=== PATIENT | female | born 1980 | race Caucasian/White ===

== ENCOUNTER 2017-07-12 21:08 | Emergency (ER) | payer BC ==
[~2017-07-12] VITALS: Ht 154.9 cm; Wt 79.4 kg
[~2017-07-12 21:08] MED LIST: SERT25TA PO; SULF1TAB24 PO
--- NOTE | 2017-07-12 21:15 | ED.ADGEN ---
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 No recent travel, bad food. Pt. recently diagnosis of pneumonia. Many family members have had diarrhea. Pt. normally healthy. Review of Systems Review of Systems Constitutional: Hx fever or chills [] Eyes: Denies change in visual acuity, redness, or eye pain [] HENT: Denies nasal congestion or sore throat [] Respiratory: Denies cough or shortness of breath [] Cardiovascular: No additional information not addressed in HPI [] GI: Complaints of abdominal pain, nausea, and diarrhea [] : Denies dysuria or hematuria [] Musculoskeletal: Denies back pain or joint pain [] Integument: Denies rash or skin lesions [] Neurologic: Denies headache, focal weakness or sensory changes [] Endocrine: Denies polyuria or polydipsia [] All other systems were reviewed and found to be within normal limits, except as documented in this note. Family History Family History Non-contributory- other than multiple individuals with flu symptoms Current Medications Current Medications Current Medications Medications (Trade) Dose Ordered Sig/Evelio Start Time Stop Time Status Last Admin Dose Admin Ketorolac Tromethamine (Toradol) 30 mg 1X ONCE 07/12/17 21:45 07/12/17 22:01 DC 07/12/17 21:50 30 MG Lactated Ringer's 1,000 ml @ 1,000 mls/hr Q1H 07/12/17 21:45 07/12/17 23:09 DC Morphine Sulfate (Morphine 4mg Syringe) 4 mg 1X ONCE 07/12/17 21:45 07/12/17 21:47 DC Ondansetron HCl (Zofran) 8 mg 1X ONCE 07/12/17 21:45 07/12/17 21:47 DC 07/12/17 21:47 8 MG Sodium Chloride 1,000 ml @ 1,000 mls/hr 1X ONCE 07/12/17 22:15 07/12/17 23:09 DC 07/12/17 22:07 1,000 MLS/HR Allergies Allergies Allergies Coded Allergies Type Severity Reaction Last Updated Verified No Known Drug Allergies 05/01/15 No Physical Exam Physical Exam Constitutional: Well developed, well nourished, mild distress, non-toxic appearance. [] HENT: Normocephalic, atraumatic, bilateral external ears normal, oropharynx moist, no oral exudates, nose normal. [] Eyes: PERRLA, EOMI, conjunctiva normal, no discharge. [] Neck: Normal range of motion, no tenderness, supple, no stridor. [] Cardiovascular: Tachycardia Heart rate regular rhythm, no murmur [] Lungs & Thorax: Bilateral breath sounds clear to auscultation [] Abdomen: Bowel sounds hyperactive, soft, no tenderness, no masses, no pulsatile masses. [] Skin: Warm, dry, no erythema, no rash. [] Back: No tenderness, no CVA tenderness. [] Extremities: No tenderness, no cyanosis, no clubbing, ROM intact, no edema. [] Neurologic: Alert and oriented X 3, normal motor function, normal sensory function, no focal deficits noted. [] Psychologic: Affect anxious, judgement normal, mood normal. [] Current Patient Data Vital Signs Vital Signs Date Time Temp Pulse Resp B/P (MAP) Pulse Ox O2 Delivery O2 Flow Rate FiO2 07/12/17 23:08 108 16 103/48 (66) 98 Room Air 07/12/17 21:22 98.1 Lab Results Laboratory Tests Test 07/12/17 21:33 White Blood Count 7.9 x10^3/uL (4.0-11.0) Red Blood Count 4.58 x10^6/uL (3.50-5.40) Hemoglobin 13.2 g/dL (12.0-15.5) Hematocrit 39.2 % (36.0-47.0) Mean Corpuscular Volume 86 fL (79-100) Mean Corpuscular Hemoglobin 29 pg (25-35) Mean Corpuscular Hemoglobin Concent 34 g/dL (31-37) Red Cell Distribution Width 13.7 % (11.5-14.5) Platelet Count 173 x10^3/uL (140-400) Neutrophils (%) (Auto) 66 % (31-73) Lymphocytes (%) (Auto) 15 % (24-48) L Monocytes (%) (Auto) 13 % (0-9) H Eosinophils (%) (Auto) 5 % (0-3) H Basophils (%) (Auto) 0 % (0-3) Neutrophils # (Auto) 5.2 x10^3uL (1.8-7.7) Lymphocytes # (Auto) 1.2 x10^3/uL (1.0-4.8) Monocytes # (Auto) 1.0 x10^3/uL (0.0-1.1) Eosinophils # (Auto) 0.4 x10^3/uL (0.0-0.7) Basophils # (Auto) 0.0 x10^3/uL (0.0-0.2) Urine Collection Type Unknown Urine Color Straw Urine Clarity Clear Urine pH 7.0 Urine Specific [place] <=1.005 Urine Protein Neg (NEG-TRACE) Urine Glucose (UA) Neg mg/dL (NEG) Urine Ketones (Stick) Neg mg/dL (NEG) Urine Blood Small (NEG) Urine Nitrite Neg (NEG) Urine Bilirubin Neg (NEG) Urine Urobilinogen Dipstick 0.2 mg/dL (0.2 mg/dL) Urine Leukocyte Esterase Neg (NEG) Urine RBC Rare /HPF (0-2) Urine WBC Occ /HPF (0-4) Urine Squamous Epithelial Cells Mod /LPF Urine Bacteria 0 /HPF (0-FEW) Sodium Level 144 mmol/L (136-145) Potassium Level 3.4 mmol/L (3.5-5.1) L Chloride Level 105 mmol/L (98-107) Carbon Dioxide Level 27 mmol/L (21-32) Anion Gap 12 (6-14) Blood Urea Nitrogen 5 mg/dL (7-20) L Creatinine 0.9 mg/dL (0.6-1.0) Estimated GFR (Cockcroft-Gault) 71.3 Glucose Level 134 mg/dL (70-99) H Calcium Level 8.8 mg/dL (8.5-10.1) Total Bilirubin 0.6 mg/dL (0.2-1.0) Direct Bilirubin 0.1 mg/dL (0.0-0.2) Aspartate Amino Transferase (AST) 20 U/L (15-37) Alanine Aminotransferase (ALT) 36 U/L (14-59) Alkaline Phosphatase 60 U/L (46-116) Total Protein 7.5 g/dL (6.4-8.2) Albumin 3.8 g/dL (3.4-5.0) Lipase 113 U/L (73-393) EKG EKG [] Radiology/Procedures Radiology/Procedures No acute cardiopulmonary findings. No free air under the diaphragm. Non- specific bowel gas pattern Course & Med Decision Making Course & Med Decision Making Pertinent Labs and Imaging studies reviewed. (See chart for details). Clear fluid diet. Pepto bismal. Follow up with primary. [] Final Impression Final Impression 1. Abdomen Pain 2. Gastroenteritis[] Problems: Dragon Disclaimer Dragon Disclaimer This electronic medical record was generated, in whole or in part, using a voice recognition dictation system. JODY KYLE MD Jul 12, 2017 21:15
[2017-07-12] MEDS ORDERED: IV RINGERS SOLUTION,LACTATED 1,000 ML IV SCH (21:45)
[2017-07-12] MEDS ORDERED: KETOROLAC 30 MG/ML VIAL. IV ONE (21:45)
[2017-07-12] MEDS ORDERED: ONDANSETRON PF 4 MG/2 ML VIAL. IV ONE (21:45)
[2017-07-12] MEDS ORDERED: MORPHINE SULFATE 4 MG/ML DISP.SYRIN. IV ONE (21:45)
[2017-07-12 21:51] LABS: BASO % 0 % (0-3); EOS # 0.4 x10^3/uL (0.0-0.7); EOS % 5 % (0-3); HEMATOCRIT 39.2 % (36.0-47.0); HEMOGLOBIN 13.2 g/dL (12.0-15.5); LYMPH # 1.2 x10^3/uL (1.0-4.8); LYMPH % 15 % (24-48); MEAN CORPUSCULAR HEMOGLOBIN 29 pg (25-35); MEAN CORPUSCULAR HGB CONC 34 g/dL (31-37); MEAN CORPUSCULAR VOLUME 86 fL (79-100); MONO % 13 % (0-9); NEUT # 5.2 x10^3uL (1.8-7.7); NEUT % 66 % (31-73); PLATELET COUNT 173 x10^3/uL (140-400); RED BLOOD COUNT 4.58 x10^6/uL (3.50-5.40); RED CELL DISTRIBUTION WIDTH 13.7 % (11.5-14.5); WHITE BLOOD COUNT 7.9 x10^3/uL (4.0-11.0)
[2017-07-12 22:02] LABS: ALBUMIN 3.8 g/dL (3.4-5.0); CALCIUM 8.8 mg/dL (8.5-10.1); CREATININE 0.9 mg/dL (0.6-1.0); DIRECT BILIRUBIN 0.1 mg/dL (0.0-0.2); GFR 71.3; POTASSIUM 3.4 mmol/L (3.5-5.1); TOTAL BILIRUBIN 0.6 mg/dL (0.2-1.0); TOTAL PROTEIN 7.5 g/dL (6.4-8.2)
[2017-07-12 22:04] LABS: BACTERIA,URINE 0 /HPF (0-FEW); BILIRUBIN,URINE NEG (NEG); CLARITY,URINE CLEAR; COLOR,URINE STRAW; GLUCOSE,URINE NEG (NEG); NITRITE,URINE NEG (NEG); RBC,URINE RARE /HPF (0-2); SQUAMOUS EPITHELIAL CELL,UR MOD /LPF; UROBILINOGEN,URINE 0.2 mg/dL (0.2 mg/dL); WBC,URINE OCC /HPF (0-4)
[2017-07-12] MEDS ORDERED: IV NORMAL SALINE 1,000ML 1,000 ML IV ONE (22:15)
[2017-07-12 23:08] VITALS: BP 103/48
--- NOTE | 2017-07-13 08:50 | RAD ---
Single view chest and upright and supine AP views abdomen 07/12/2017 Clinical indication: Nausea, cough, fever. Comparison: None. Findings: Cardiac and mediastinal silhouettes are unremarkable. No pleural effusion, pneumothorax or focal consolidation. There is a nonobstructive bowel gas pattern. There are 2 radiopaque buttons overlying the lower central pelvis, likely external to the patient. No pneumoperitoneum or portal venous gas. The visualized osseous structures are intact. Impression: 1. No acute cardiopulmonary abnormality. 2. No radiographic evidence of bowel obstruction or pneumoperitoneum.
== END 2017-07-12 23:08 | disposition home or self-care (01) ==
LOC: ER 21:08
DX: K52.9 Noninfective gastroenteritis and colitis, unspecified (principal)
CPT/HCPCS: 36415; 74022; 80048; 80076; 81001; 83690; 85025; 96361; 96374; 96375; 99285; J1885; J2405; J7030